=== PATIENT | female | born 1985 | race Caucasian/White ===

== ENCOUNTER → 2021-12-12 01:59 | Outpatient (CLI) | payer OTHER, SELFPAY | PROVIDERS: PCP Family Medicine; Visit Provider Pediatrics Pediatric Rheumatology ==

== ENCOUNTER → 2022-01-02 03:08 | Outpatient (CLI) | payer OTHER, SELFPAY ==
--- NOTE | 2022-01-02 12:30 | DI.RAD_ITS ---
Exam(s) XR LUMBAR SPINE AP, LAT EXAM: XR LUMBAR SPINE AP, LAT CLINICAL HISTORY: DISABILITY DETERMINATION, LBP, Z02.71. TECHNIQUE: 2D digital imaging was performed of the lumbar spine. Three images were obtained. AP, l ateral and L5-S1 spot views were obtained. COMPARISON: CR LUMBAR SPINE AP, LAT from 06/07/2011 FINDINGS: BONES: No fracture or destructive lesion. Vertebral bodies are unremarkable. No facet hypertrophy sandy ntified. DISKS: Intervertebral disc spaces are maintained. ALIGNMENT: Lumbar spinal alignment is within normal limits. No spondylolysis or spondylolisthesis. SOFT TISSUE: Normal. IMPRESSION: Unremarkable radiographs of the lumbar spine. DATA REPOSITORY: RADIATION DOSE DELIVERED:
== END ==
PROVIDERS: PCP Family Medicine; Visit Provider Pediatrics Pediatric Rheumatology
DX: M54.59 Other low back pain (principal); Z02.71 Encounter for disability determination
CPT/HCPCS: 72100

== ENCOUNTER 2022-03-03 16:46 | Outpatient (REF) | payer MEDICARE, MEDICAID, SELFPAY ==
[2022-03-03 11:57] LABS: *AMPHETAMINES SCREEN URINE Negative (Negative); *BARBITURATES SCREEN URINE Negative (Negative); *BENZODIAZEPINES SCREEN URINE Negative (Negative); Cannabinoids THC Positive (Negative); Cocaine Screen,Urine Negative (Negative); METHADONE URINE SCREEN Positive (Negative); OPIATES URINE SCREEN Negative (Negative)
[2022-03-03 11:59] LABS: Tricyclic Antidepressants Negative (Negative)
[2022-03-09 18:05] LABS: Codeine Negative ng/mL (Cutoff: 25); Dihydrocodeine Negative ng/mL (Cutoff: 25); Hydrocodone Negative ng/mL (Cutoff: 25); Hydromorphone Negative ng/mL (Cutoff: 25); Morphine Negative ng/mL (Cutoff: 25); Naloxone Negative ng/mL (Cutoff: 25); Norhydrocodone Negative ng/mL (Cutoff: 25); Noroxycodone Negative ng/mL (Cutoff: 25); Noroxymorphone Negative ng/mL (Cutoff: 25); Opiates Interpretation Negative.
== END 2022-03-03 16:47 | disposition home or self-care (01) ==
LOC: LBN 16:46
PROVIDERS: PCP Family Medicine; Visit Provider Nurse Practitioner Psychiatric/Mental Health
DX: F11.20 Opioid dependence, uncomplicated (principal)
CPT/HCPCS: 80307; 80361; 80362; 80365

== ENCOUNTER 2023-09-05 11:32 | Emergency (ER) | payer MEDICARE, SELFPAY ==
[2023-09-05 11:36] VITALS: BP 137/99; PULSE 92; RESP 16; TEMP 36.5; O2SAT 97
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
[2023-09-05 11:47] VITALS: BP 137/99; PULSE 92; RESP 16; TEMP 36.5; O2SAT 97
[2023-09-05] MEDS: Ondansetron 4 MG/2 ML VIAL IVP (12:06)
[2023-09-05] MEDS: ACETAMINOPHEN 1,000 MG/100 ML BTL 400 MG IVPB (12:07)
[2023-09-05] MEDS: Normal Saline 1,000 ML 1000 ML IV (12:21)
[2023-09-05 12:22] LABS: Abs Immature Grans 0.03 10^3/uL (0.0-0.06); Absolute Basophil Count 0.09 10^3/uL (0.0-0.2); Absolute Eosinophil Count 0.13 10^3/uL (0.0-0.7); Absolute Lymphocyte Count 1.71 10^3/uL (1.2-3.4); Absolute Monocyte Count 0.45 10^3/uL (0.1-0.8); Absolute Neutrophil Count 8.51 10^3/uL (1.2-6.7); Basophils % 0.8; Eosinophils % 1.2; HCT 46.7 % (36.0-46.0); HGB 15.6 g/dL (11.2-15.7); Immature Grans % 0.3; Lymphocytes % 15.7; MCH 31.2 pg (27.0-33.0); MCHC 33.4 % (32.0-36.0); MCV 93 fL (80-95); MPV 11.1 fL (8.0-11.0); Monocytes % 4.1; Neutrophils % 77.9; Platelet Count 202 10^3/uL (130-400); RDW 13.2 % (11.7-14.6); RDW-SD 45.1 fL; WBC 10.92 10^3/uL (4.4-10.8)
[2023-09-05 12:36] LABS: Anion Gap 7.6 mmol/L (3-11); BUN 11 mg/dL (7-18); CO2 28.4 mmol/L (21.0-32.0); CREATININE 0.7 mg/dL (0.55-1.02); Calcium 9.6 mg/dL (8.5-10.1); Chloride 104 mmol/L (98-107); Estimated GFR 112.05 (mL/min/1.73m2); Glucose 123 mg/dL (74-106); Potassium 3.5 mmol/L (3.5-5.1); Sodium 140 mmol/L (136-145)
[2023-09-05 12:40] LABS: HCG Qual (Serum) Negative
[2023-09-05 13:00] LABS: COVID-19 PCR Negative (Negative); Influenza A PCR Negative (Negative); Influenza B PCR Negative (Negative); RSV PCR Negative (Negative)
[2023-09-05 13:09] LABS: Source Nasopharynx
[2023-09-05 13:45] VITALS: BP 158/95; PULSE 88; RESP 14; TEMP 36.5; O2SAT 99
== END 2023-09-05 13:47 | disposition home or self-care (01) ==
PROVIDERS: Emergency Provider Emergency Medicine; PCP Family Medicine
DX: J06.9 Acute upper respiratory infection, unspecified (principal); Z11.52 Encounter for screening for COVID-19; F17.210 Nicotine dependence, cigarettes, uncomplicated
CPT/HCPCS: 80048; 87637; 96361; 96374; 96375; 99283; 83735; 84703; 85025; J0131; J2405

== ENCOUNTER 2024-01-12 16:36 | Emergency (ER) | payer MEDICARE, MEDICAID, SELFPAY ==
--- NOTE | 2024-01-12 16:38 | ED.GENADUL_ITS ---
Discharge Plan Disposition Patient Disposition: Home Condition: Good Discharge Details Clinical Impression: Rash and nonspecific skin eruption Primary Care Provider: None,None ED Provider: Preston Saenz Medpatric and New Rx's Prescriptions: Continued escitalopram oxalate [Lexapro] 20 MG tablet 10 mg PO DAILY Qty: 30 buprenorphine-naloxone [Suboxone] 12-3 mg film 2 film sublingual DAILY Rx Instructions: place 1 strip/tab under (each) side of tongue Discharge Instructions Additional Instructions: You were seen for concern of a rash on your knee. This does not appear to be shingles but more of a nondescript rash. There is no specific treatment. May follow-up with primary care as needed. Return to ED for fever, blistering rash, other concerns. HPI General Mode of arrival: ambulatory . Date/Time Provider Initiated Documentation: 01/12/24 16:38 . Limitations to Documentation: no limitations . Information obtained by: patient . HPI Narrative: Patient presenting to ED with concern for a rash on her right knee that she feels might be shingles. First noticed it this morning. It is not itchy or painful. She does have an itchy spot on her back but cannot see that area. Does report history of chickenpox. Denies fever or other illness. Has headache similar to previous with no neurologic changes. Related Data Home Medications Medication Instructions Recorded Confirmed escitalopram oxalate 20 mg tablet 10 mg PO DAILY #30 tabs 12/01/14 01/12/24 (Lexapro) buprenorphine 12 mg-naloxone 3 mg 2 film sublingual DAILY 09/05/23 01/12/24 sublingual film (Suboxone) Allergies Allergy/AdvReac Type Severity Reaction Status Date / Time latex Allergy Unknown SKIN Unverified 09/05/23 11:38 BREAKS OUT penicillin G Allergy Unknown UNKNOWN Unverified 09/05/23 11:38 acetaminophen Allergy suidial Unverified 09/05/23 11:38 [From Darvocet-N 100] ideations propoxyphene napsylate Allergy suidial Unverified 09/05/23 11:38 [From Darvocet-N 100] ideations codeine AdvReac n/v Unverified 09/05/23 11:38 General KAMILLE: 3 Review of Systems Narrative: Per HPI Exam Narrative Exam Narrative: Const: WDWN female in NAD. VS per triage. HEENT: NC/AT. Normal facial exam. Eyes: Normal conjunctiva and sclera. Neck: Supple. Trachea midline. Lungs: Normal respiratory effort. Neuro: A+O x 3. Normal speech, mentation, gait. Cranial nerves II - XII grossly intact. No gross motor or sensory deficit. Skin: Warm and dry. 3 tiny nondescript lesions right patella area with no erythema, vesicles. Small macular mildly erythematous patch on her back. Medical Decision Making Patient presenting to ED with rash on her right knee. These are tiny nondescri pt lesions on the right patellar region which are not consistent with shingles. Area on her back is mostly consistent with eczema which she has history of. Patient reassured and discharged home to follow-up with primary care as needed. Return precautions provided. PFSH All Active Problems Rash and nonspecific skin eruption (Acute) Medical History Asthma Drug dependence Suboxone maintenance Other chronic pain Headache Depression anxiety/adhd Family History (Updated 02/01/14 @ 21:12 by ) Other Family history of diabetes mellitus Social History (Updated 01/12/24 @ 16:59 by Preston Saenz MD) Smoking/Tobacco Use Status: Current every day Tobacco Type: cigarettes Years smoked: 10 Smoking risk assessment performed?: Yes Alcohol Intake: never Drug use: Daily Substance use type: marijuana Do you feel safe in your relationship?: Yes
[2024-01-12 16:40] VITALS: BP 103/62; PULSE 92; RESP 20; TEMP 37.1; O2SAT 94
[2024-01-12 17:00] VITALS: BP 102/63; PULSE 92; RESP 15; O2SAT 99
== END 2024-01-12 17:01 | disposition home or self-care (01) ==
LOC: ER 17:07
PROVIDERS: Emergency Provider Emergency Medicine
DX: R21 Rash and other nonspecific skin eruption (principal)
CPT/HCPCS: 99281; 99282